=== PATIENT | male | born 1945 | race Caucasian/White ===

== ENCOUNTER → 2020-10-18 08:47 | Outpatient (CLI) | payer MEDICARE, OTHER, SELFPAY ==
[2020-10-18 11:22] LABS: COVID19 -Nasal RAPID Negative (Negative)
== END ==
PROVIDERS: PCP Family Medicine; Visit Provider Student in an Organized Health Care Education/Training Program
DX: Z01.812 Encounter for preprocedural laboratory examination (principal); Z20.822 Contact with and (suspected) exposure to COVID-19
CPT/HCPCS: 87635; C9803

== ENCOUNTER 2020-10-20 12:29 | Day surgery (SDC) | payer MEDICARE, OTHER, SELFPAY ==
--- NOTE | 2020-10-20 12:15 | PM.HP.1 ---
History of Present Illness History of Present Illness Date Patient Seen: 10/20/20 Chief complaint: SCREENING COLONOSCOPY Narrative: 74 year old male comes in today for consideration of a screening colonoscopy. Denies previous colonoscopy. There have been no lower GI symptoms suggesting disease such as change in bowel habits, bleeding, abdominal pain or anemia. There's been no family history of colon cancer or colon polyps. Overall health issues have been stable, including no major cardiac events for at least 6 weeks. PCP: Dr. Miranda Past medical history: Hypertension Systolic murmur Hyperlipidemia Past surgical history: None Family history: Father, [place], at 67 Social history: No drug use. Patient History Medical History (Updated 10/20/20 @ 11:05 by Kandy Rodriguze RN) HTN (hypertension) Hyperlipemia Systolic murmur Meds Home Medications and Allergies Home Medications Medication Instructions Recorded Confirmed Type lisinopril 20 20 - 25 tab PO DAILY 10/20/20 10/20/20 History mg-hydrochlorothiazide 25 mg tablet metoprolol succinate 100 mg 100 mg PO DAILY 10/20/20 10/20/20 History tablet,extended release 24 hr Allergies Allergy/AdvReac Type Severity Reaction Status Date / Time No Known Drug Allergies Allergy Verified 10/20/20 11:03 Review of Systems Review of Systems Narrative: 10 point review systems completed and found to be noncontributory except for items mentioned in the HPI. Exam Narrative Exam Narrative: GENERAL: Alert and oriented, appearing stated age and in no acute distress. HEENT: Head normocephalic/atraumatic. LUNGS: Clear to ausculation bilaterally, no wheezes, rhonchi or rales. CV: Normal S1 and S2 with regular rate and rhythm, no audible murmurs, rubs or gallops. ABDOMEN: Soft, non-tender, non-distended, no organomegaly. Positive bowel sounds. EXTREMITIES: No clubbing, cyanosis, or edema. NEURO: Cranial nerves II through XII grossly intact, no focal deficits. PSYCH: Alert and oriented x 3. SKIN: No concerning lesions. Assessment & Plan Assessment & Plan narrative: 1. Screening for colon cancer Plan for colonoscopy. The nature and character of the procedure as well as anticipated results were discussed. The possibility of not completing the procedure was also discussed. Possible complications including aspiration pneumonia, bleeding, perforation and reaction to medications either for sedation or preparation and missed lesions were discussed. Questions were answered and proceeding to the colonoscopy was elected. Informed consent signed. I sincerely appreciate the referral allowing me to participate in this patient's care. Please contact me with any questions or concerns.
--- NOTE | 2020-10-20 12:19 | PM.OP.ENDO ---
Operative Date/Time/Diagnoses Date of procedure: 10/20/20 Procedure Notes SCOAP/Timeout: 1:52 p.m. Procedure in detail: ENDOSCOPIST: Shannon Pierre MD Sedation RN: Nivia Rivera RN Sedation start time: 1:53 p.m. Sedation end time: 2:14 p.m. PROCEDURE: Colonoscopy INDICATIONS: 1. Screening for colon cancer MEDICATION: Levsin 0.125 mg sublingual, incremental doses of Versed and fentanyl until appropriate level sedation achieved. ASA CLASS: 2 CECAL WITHDRAWAL TIME: 9 minutes COMPLICATIONS: None. EXTENT OF PROCEDURE: Cecum. QUALITY OF PREP: Good with portions of liquid stool. PROCEDURE: Prior to insertion of the colonoscope, a digital rectal examination was accomplished with circumferential palpation of the distal rectal mucosa without significant findings being noted. The high-definition colonoscope was passed into the rectum in the usual fashion and advanced over to the cecum without difficulty. The ileocecal valve, appendiceal stoma, and medial wall all could be inspected and no abnormalities were seen. ASCENDING COLON: As the colonoscope was withdrawn, care was taken to expose and inspect the haustral folds and no abnormalities were seen. HEPATIC FLEXURE: Normal, no polyps, diverticula or other abnormalities. TRANSVERSE COLON: Normal, no polyps, diverticula or other abnormalities. DESCENDING COLON: Normal, no polyps, diverticula or other abnormalities. SIGMOID COLON: Minor diverticulosis, otherwise, no polyps, or other abnormalities. RECTUM: Normal. J maneuver was produced. There was no significant perianal disease. The J maneuver was broken. The remainder of the rectum was inspected and there was no external hemorrhoid disease. The scope was withdrawn. IMPRESSION: 1. Normal colonoscopy 2. Diverticulosis, sigmoid, minor PLAN: 1. Secondary to age, patient no longer needs screening colonoscopies. The possibility of a missed lesion including a malignancy has been discussed with the patient previously. Potential alarm symptoms have been discussed and should be reported immediately.
[2020-10-20 12:42] VITALS: BP 170/84; PULSE 100; RESP 16; TEMP 36.6; O2SAT 98; BMI 33.2
[2020-10-20] MEDS: HYOSCYAMINE 0.125 MG TABLET PO (12:50)
[2020-10-20] MEDS: LACTATED RINGERS 1,000 ML 200 ML IV (12:50)
[2020-10-20] MEDS: fentaNYL 250 MCG/5 ML INJ IV (14:02)
[2020-10-20] MEDS: MIDAZOLAM 5 MG/5 ML VIAL IV (14:02)
[2020-10-20 14:17] VITALS: BP 167/80; PULSE 89; RESP 18; TEMP 36.8; O2SAT 95
[2020-10-20 14:21] VITALS: BP 147/70; PULSE 89; RESP 15; O2SAT 94
[2020-10-20 14:26] VITALS: BP 152/69; PULSE 81; RESP 16; TEMP 36.9; O2SAT 95
[2020-10-20 14:35] VITALS: BP 141/77; PULSE 73; RESP 17; TEMP 36.6; O2SAT 95
--- NOTE | 2020-10-20 16:45 | SUR.PHASEII ---
Late entry: Pt ready to go, ride called, pt belly still soft, no nausea and left in stable condition.
== END 2020-10-20 14:53 | disposition home or self-care (01) ==
PROVIDERS: PCP Family Medicine; Referring Provider Student in an Organized Health Care Education/Training Program; Visit Provider Student in an Organized Health Care Education/Training Program
PROC: 0DJD8ZZ Inspection of Lower Intestinal Tract, Via Natural or Artificial Opening Endoscopic (ICD-10-PCS; CPT 45378; principal; 2020-10-20 13:45)
DX: Z12.11 Encounter for screening for malignant neoplasm of colon (principal); I10 Essential (primary) hypertension; E78.5 Hyperlipidemia, unspecified; K57.30 Diverticulosis of large intestine without perforation or abscess without bleeding
CPT/HCPCS: G0121; J2250; J3010